=== PATIENT | male | born 1965 | race Caucasian/White ===

== ENCOUNTER 2017-09-26 20:38 | Emergency (ER) | payer MEDICAID ==
[~2017-09-26] VITALS: Ht 185.4 cm; Wt 84.0 kg
[~2017-09-26 20:38] MED LIST: CLON2TAB PO; DEXT5TAB15 PO; FLUO10CA25 PO; QUET25TA PO; SIMV10TA6 PO
[2017-09-26 21:20] VITALS: BP 112/70
== END 2017-09-27 03:55 | disposition left against medical advice (07) ==
LOC: ER 20:38
DX: Z00.8 Encounter for other general examination (principal); Z53.21 Procedure and treatment not carried out due to patient leaving prior to being seen by health care provider